=== PATIENT | female | born 1935 | race Caucasian/White ===

== ENCOUNTER 2016-08-19 11:24 | Emergency (ER) | payer MEDICARE, OTHER ==
[2016-08-19 12:12] LABS: HEMOGLOBIN 12.3 gm/dl (12.3-15.3); RED BLOOD COUNT 4.1 M/UL (4.00-5.10); WHITE BLOOD COUNT 6.9 K/UL (4.5-11.0)
[2016-08-19 12:33] LABS: BUN/CREATININE RATIO 21 (0-10)
== END 2016-08-19 14:05 | disposition home or self-care (01) ==
LOC: ER1 11:24
PROVIDERS: Emergency Medicine
DX: R07.2 Precordial pain (principal); R07.89 Other chest pain
CPT/HCPCS: 36415; 71010; 80053; 82550; 82553; 83874; 84484; 85025; 93005; 99284

== ENCOUNTER → 2020-10-26 | Outpatient (CLI) | payer MEDICARE, OTHER ==
[~2020-10-26] MED LIST: ALDACTONE25 MG PO; AMLODIPINE BES2.5 MG PO; CLOPIDOGREL75 MG PO; DEXILANT60 MG PO; ECOTRIN81 MG PO; FISH OIL 1,0001 EACH PO; IMDUR ER TAB 3030 MG PO; IMDUR ER TAB 6060 MG PO; LIPITOR20 MG PO; LOPRESSOR 25 MG25 MG PO; MIRALAX17 GM PO; PATANOL OP SOLN5 ML EYEBOTH; PAXIL10 MG PO; PLAVIX 75 MG TA75 MG PO; RANEXA500 MG PO; SINGULAIR10 MG PO; SYNTHROID75 MCG PO; TRAMADOL HCL50 MG PO; VITAMIN B-121000 MC3 PO; ZANAFLEX4 M1 PO
== END ==
LOC: KOH-I 13:14
DX: J01.81 Other acute recurrent sinusitis (principal)
CPT/HCPCS: 70486

== ENCOUNTER → 2021-03-07 | Outpatient (CLI) | payer MEDICARE, OTHER ==
[2021-03-07 11:12] LABS: RED BLOOD COUNT 4.36 M/UL (4.00-5.10); WHITE BLOOD COUNT 4.3 K/UL (4.5-11.0)
[2021-03-07 11:33] LABS: BUN/CREATININE RATIO 15 (0-10)
== END ==
LOC: LBRF 10:45
PROVIDERS: Preventive Medicine Addiction Medicine
DX: N39.0 Urinary tract infection, site not specified (principal); I11.0 Hypertensive heart disease with heart failure; I50.20 Unspecified systolic (congestive) heart failure; E11.9 Type 2 diabetes mellitus without complications
CPT/HCPCS: 80053; 81001; 82570; 83735; 83880; 84156; 85025; 87086

== ENCOUNTER 2022-01-04 08:17 | Observation (INO) | payer MEDICARE, OTHER ==
[~2022-01-04] VITALS: Ht 157.5 cm; Wt 81.6 kg
[2022-01-04 08:45] LABS: HEMOGLOBIN 13.3 gm/dl (12.3-15.3); RED BLOOD COUNT 4.13 M/UL (4.00-5.10); WHITE BLOOD COUNT 4.2 K/UL (4.5-11.0)
[2022-01-04 09:17] LABS: BUN/CREATININE RATIO 22 (0-10)
[2022-01-04] MEDS ORDERED: OCUVITE ADULT1 EAC2 PO (14:13)
[2022-01-04] MEDS ORDERED: CINNAMON500 MG PO (14:14)
[2022-01-04] MEDS ORDERED: CALCIUM CARBON600 MG PO (14:15)
[2022-01-04] MEDS ORDERED: FML10 ML OS (14:20)
[2022-01-05 03:37] LABS: HEMOGLOBIN 12.9 gm/dl (12.3-15.3); RED BLOOD COUNT 4.05 M/UL (4.00-5.10)
[2022-01-05 03:47] LABS: BUN/CREATININE RATIO 17 (0-10)
[2022-01-05 04:21] LABS: WHITE BLOOD COUNT 5.6 K/UL (4.5-11.0)
[2022-01-05] MEDS ORDERED: ASPIRIN EC81 MG PO (12:37)
== END 2022-01-05 13:30 | disposition home or self-care (01) ==
LOC: ER1 08:17 → CDU 13:08 → M/S 13:08
PROVIDERS: Physician Assistant; ADMIT Family Medicine
DX: R42 Dizziness and giddiness (principal); Z20.822 Contact with and (suspected) exposure to COVID-19; R11.10 Vomiting, unspecified; I10 Essential (primary) hypertension; I25.10 Atherosclerotic heart disease of native coronary artery without angina pectoris; E78.5 Hyperlipidemia, unspecified; G47.33 Obstructive sleep apnea (adult) (pediatric); E03.9 Hypothyroidism, unspecified; Z79.02 Long term (current) use of antithrombotics/antiplatelets; Z79.82 Long term (current) use of aspirin; Z88.0 Allergy status to penicillin
CPT/HCPCS: ECHO; 0240U; 36600; 70450; 70496; 70498; 70551; 71045; 80048; 80053; 81001; 82550; 82553; 82803; 82962; 83605; 84484; 85025; 85027; 85610; 85730; 87040; 87086; 93005; 93306; 94660; 96361; 96374; 99285; G0378; J2405; Q9967